=== PATIENT | female | born 1955 | race Caucasian/White ===

== ENCOUNTER 2020-11-08 15:50 | Emergency (ER) | payer MEDICARE, SELFPAY ==
--- NOTE | ~2020-11-08 | XR_ITS ---
EXAMINATION: XR chest 1V portable DATE: 11/08/2020 16:36 INDICATION: Shortness of breath and cough. TECHNIQUE: A single frontal view of the chest was obtained. COMPARISON: Chest 2 views 12/07/2018 FINDINGS: The chest demonstrates clear lungs without pneumonia, pleural effusion, or pneumothorax. Th e heart size is normal. Surgical clips in the right upper quadrant are likely from cholecystectomy. IMPRESSION: 1. No acute cardiopulmonary disease. Reviewed, dictated and finalized at location A. MAKING MACHINE OPERATOR
[2020-11-08 16:01] VITALS: BP 122/63; PULSE 71; RESP 22; TEMP 36.7; O2SAT 98
--- NOTE | 2020-11-08 16:11 | ECG_ITS ---
Measurements Intervals [place] Rate: 67 P: 22 HI: 139 QRS: 25 QRSD: 94 T: 31 QT: 396 QTc: 419 Interpretive Statements SINUS RHYTHM NORMAL ECG Electronically Signed On 11-08-2020 16:36:15 GEOTECHNICAL FIELD TECHNICIAN by Sidney Mcconnell D.O.
--- NOTE | 2020-11-08 16:12 | ED.SOB ---
HPI - SOB/Dyspnea General Chief Complaint: Shortness of Breath/Dyspnea Stated Complaint: I want a COVID test Time Seen by Provider: 11/08/20 16:04 Source: patient Limitations: no limitations History of Present Illness HPI Narrative: Patient is a 65-year-old female wants a Covid test, complaining of cough, shortness of breath, body aches, decreased appetite and fatigue that started last week. Patient states that she was exposed to Covid, sounds positive for Covid. Patient denies any abdominal pain, nausea, vomiting, diarrhea. Related Data Home Medications Medication Instructions Recorded Confirmed alpha lipoic acid 600 mg PO BID 11/08/20 alprazolam 0.5 mg PO BID PRN 11/08/20 aspirin mg PO 11/08/20 bupropion HCl 300 mg PO QAM 11/08/20 calcium carbonate-vitamin D3 1 tablet PO BID 11/08/20 [Calcium 600 with Vitamin D3] coenzyme Q10 [Co Q-10] 200 mg PO DAILY 11/08/20 ergocalciferol (vitamin D2) 1,000 unit PO DAILY 11/08/20 [Vitamin D2] flaxseed oil 1,000 mg PO DAILY 11/08/20 fluoxetine mg 11/08/20 lisinopril 11/08/20 magnesium oxide mg 11/08/20 montelukast mg 11/08/20 simvastatin mg 11/08/20 sitagliptin [Januvia] 50 mg PO DAILY 11/08/20 trazodone 100 mg PO HS 11/08/20 turmeric root extract mg PO 11/08/20 vit C-vit W-yizplq-nrrbqall cap PO 11/08/20 [Lutein Vison Formula] Allergies Allergy/AdvReac Type Severity Reaction Status Date / Time aspirin Allergy Intermediate Hives / Verified 11/08/20 16:11 [place] oxycodone Allergy Intermediate Hives / Verified 11/08/20 16:11 [place] ibuprofen Allergy Unknown Other Verified 11/08/20 16:11 Review of Systems Review of Systems: All systems reviewed & are unremarkable except as noted in HPI and below Constitutional: Constitutional: Denies body ache(s), Denies excessive sweating, Denies fever(s), Denies headache(s), Denies lethargy and Denies weight loss Eyes: Eyes: Denies blurry vision, Denies change in vision and Denies loss of vision ENT: Denies dizziness, Denies ear discharge, Denies headache(s), Denies lip swelling, Denies epistaxis, Denies nasal congestion, Denies neck pain, Denies throat swelling and Denies tongue swelling Cardiovascular: Cardiovascular: Denies chest pain, Denies chest pain at rest, Denies chest pain with activity, Denies diaphoresis, Denies rapid heart rate, Denies edema, Denies irregular heart rhythm, Denies lightheadedness and Denies palpitations Respiratory: Respiratory: Denies chest congestion and Denies hemoptysis Gastrointestinal: Gastrointestinal: Denies abdominal pain, Denies melena, Denies hematochezia, Denies diarrhea, Denies nausea, Denies vomiting and Denies hematemesis Musculoskeletal: Musculoskeletal: Denies abnormal gait, Denies deformity, Denies joint swelling, Denies limited range of motion, Denies neck pain and Denies numbness Neurologic: Denies Abnormal speech present, Denies abnormal gait, Denies confusion, Denies dizziness, Denies headache(s), Denies focal weakness, Denies loss of vision, Denies numbness, Denies Other visual disturbances, Denies Sensory deficit (Neuro) and Denies weakness Psychiatric: Psychiatric: Denies confusion, Denies depression, Denies auditory hallucinations, Denies homicidal ideation and Denies suicidal ideation Endocrine: Endocrine: Denies cold intolerance, Denies excessive sweating, Denies fatigue, Denies heat intolerance and Denies palpitations Hematologic/Lymphatic: Hematologic/Lymphatic: Denies easy bleeding and Denies easy bruising Allergic/Immunologic: Allergic/Immunologic: Denies lip swelling, Denies throat swelling and Denies tongue swelling Exam Const: General: cooperative, healthy appearing, comfortable, no acute distress, well developed, alert and awake; No confusion Orientation/consciousness: oriented to person, oriented to place, oriented to time, patient oriented x3 and No confusion Limitations: no limitations HENMT: Head: normal to inspection, normocephalic a
[2020-11-08 16:20] VITALS: PULSE 65; O2SAT 99
[2020-11-08 16:58] LABS: Basophils Percent Auto 0.2 % (0.2-1.2); Eosinophils Percent Auto 0.9 % (0-4.4); Hematocrit 36.5 % (37.0-47.0); Hemoglobin 12.1 g/dL (12.0-15.0); Immature Granulocyte Absolute 0.02 K/mm3 (0.00-0.031); Immature Granulocyte Percent A 0.5 % (0-0.5); Immature Platelet Fraction Pct 4.5 % (0.9-11.2); Lymphocytes Absolute Auto 1.12 K/mm3 (0.9-3.2); Mean Corpuscular HGB Conc 33.2 g/dl (32-36); Mean Corpuscular Hemoglobin 30.1 pg (26-34); Mean Corpuscular Volume 90.8 fl (80-100); Mean Platelet Volume 11.3 fl (7.4-10.4); Monocytes Absolute Auto 0.6 K/mm3 (0.1-0.6); Monocytes Percent Auto 14.6 % (2.6-8.5); Neutrophils Absolute Auto 2.5 K/mm3 (1.3-6.7); Neutrophils Percent Auto 57.8 % (45.5-73.1); Platelet Count Result 134 k/mm3 (150-375); Red Blood Count 4.02 M/mm3 (4.2-5.4); Red Cell Distribution Width 13.5 % (11.5-14.5); White Blood Count 4.3 K/mm3 (4.5-10.0)
[2020-11-08 17:07] LABS: Alanine Aminotransferase 36 U/L (4-35); Albumin Level 4.2 g/dL (3.5-5.1); Alkaline Phosphatase 61 U/L (38-126); Anion Gap 11 mmol/L (8-16); Aspartate Amino Transferase 32 U/L (14-36); Bilirubin,Total 0.4 mg/dL (0.2-1.3); Blood Urea Nitrogen 30 mg/dL (7-17); Calcium 9.8 mg/dL (8.4-10.2); Carbon Dioxide 26 mmol/L (22-30); Chloride 101 mmol/L (98-107); Estimated CRCL calculation 27 ml/min; Estimated Glomerular Filt Rate 25; Glucose 168 mg/dL (65-105); Potassium 4.7 mmol/L (3.4-5.0); Sodium 138 mmol/L (137-145)
[2020-11-08 17:10] LABS: D Dimer 0.47 ug/mL (<0.48)
[2020-11-08 17:19] LABS: NT Pro B Type Natriuretic Pept 88 PG/ML (5-100); Troponin I < 0.012 ng/mL (0.000-0.034)
[2020-11-08] MEDS: LACTATED RINGERS 1,000 ML 999 ML IV CONT (17:55)
[2020-11-08 17:57] VITALS: BP 104/89; PULSE 69; RESP 18; TEMP 36.6; O2SAT 98
[2020-11-08 19:00] VITALS: BP 112/68; PULSE 72; RESP 18; TEMP 36.7; O2SAT 97
[2020-11-09 19:06] LABS: SARS-CoV-2 RNA PCR Positive
== END 2020-11-08 19:05 | disposition home or self-care (01) ==
PROVIDERS: Emergency Provider Emergency Medicine; PCP Nurse Practitioner Adult Health
DX: U07.1 COVID-19 (principal); Z79.82 Long term (current) use of aspirin; Z79.84 Long term (current) use of oral hypoglycemic drugs
CPT/HCPCS: 36415; 71045; 80053; 83880; 84484; 85025; 85055; 85380; 93005; 96360; 99284; C9803; J7120; U0003

== ENCOUNTER 2022-02-05 09:25 | Emergency (ER) | payer MEDICARE, SELFPAY ==
--- NOTE | ~2022-02-05 | CT_ITS ---
EXAMINATION: CT abdomen pelvis wo con EXAM DATE: 02/05/2022 11:06 INDICATION: Epigastric ABD pain, N/V, CKD TECHNIQUE: Spiral CT of the abdomen and pelvis was performed without contrast. Axial, coronal and s agittal images of the abdomen and pelvis were reviewed. The dose-length product (DLP) for this exami nation was 1123.55 mGy-cm. The exposure was tailored according to patient size (auto mA exposure con trol), and iterative reconstruction (ASIR) was used as additional dose reduction technique. There is no prior study for comparison. FINDINGS: The liver, spleen, adrenal glands and pancreas are unremarkable. There are cholecystectomy clips. There is no nephrolithiasis or hydronephrosis. Mild bilateral renal atrophy. The uterus is n ot identified and has likely been surgically resected. The bladder is unremarkable. There is no ret roperitoneal or pelvic lymphadenopathy. The appendix is not positively visualized. There is no pericecal inflammatory change to suggest appe ndicitis. There is mild sigmoid colonic diverticulosis. There is no adjacent inflammatory change to suggest diverticulitis. The stomach and small bowel are unremarkable. There is expected amount of c olonic stool. No free intraperitoneal gas. The heart is normal in size. There are no pericardial or pleural effusions. The lung bases are unremarkable. There are no osteoblastic or osteolytic les ions identified. IMPRESSION: 1. No acute intra-abdominal findings. 2. Mild sigmoid diverticulosis. 3. Hysterectomy, cholecystectomy. Reviewed, dictated and finalized at location A.
[2022-02-05 09:30] VITALS: BP 159/69; PULSE 78; RESP 20; TEMP 36.9; O2SAT 96
--- NOTE | 2022-02-05 09:30 | ED.ABDPAIN ---
HPI - Abdominal Pain General Chief Complaint: Abdominal Pain <Julissa Jones PA-C - Last Filed: 02/05/22 14:23> Stated Complaint: vomiting, abd pain <MYLES Rubalcava Last Filed: 02/05/22 14:23> Time Seen by Provider: 02/05/22 09:27 <Julissa Jones PA-C - Last Filed: 02/05/22 14:23> Source: patient <Julissa Jones PA-C - Last Filed: 02/05/22 14:23> Mode of arrival: ambulatory <MYLES Rubalcava Last Filed: 02/05/22 14:23> Limitations: no limitations <MYLES Rubalcava Last Filed: 02/05/22 14:23> History of Present Illness HPI narrative: Patient is a 66-year-old female who presents the ED with report of epigastric abdominal pain. Patient reports the pain has been present since Monday. It has been constant, but mild since then. She feels like she has been having increased acid reflux symptoms. She used to take omeprazole daily but had to discontinue this due to her kidney function. She now only takes Pepcid as needed. Patient then developed nausea and vomiting last night. She also reports having constipation with her last bowel movement being last Monday. She states she typically has 1-2 bowel movements a day. Patient denies any fever, chills, rectal bleeding, dysuria, urinary frequency, hematemesis. She does note a Hx of chronic hematuria, which has been evaluated by Urology in the past. Patient has a Hx of CKD (Dr. Escobar) and HTN/HLD/DM. Last had a stress test several years ago. Patient denies any CP, SOB, palpitations, edema. <MYLES Rubalcava Last Filed: 02/05/22 14:23> Related Data Home Medications: Home Medications Medication Instructions Recorded Confirmed alpha lipoic acid 600 mg PO BID 11/08/20 alprazolam 0.5 mg PO BID PRN 11/08/20 aspirin mg PO 11/08/20 bupropion HCl 300 mg PO QAM 11/08/20 calcium carbonate-vitamin D3 1 tablet PO BID 11/08/20 [Calcium 600 with Vitamin D3] coenzyme Q10 [Co Q-10] 200 mg PO DAILY 11/08/20 ergocalciferol (vitamin D2) 1,000 unit PO DAILY 11/08/20 [Vitamin D2] flaxseed oil 1,000 mg PO DAILY 11/08/20 fluoxetine mg 11/08/20 lisinopril 11/08/20 magnesium oxide mg 11/08/20 montelukast mg 11/08/20 simvastatin mg 11/08/20 sitagliptin [Januvia] 50 mg PO DAILY 11/08/20 trazodone 100 mg PO HS 11/08/20 turmeric root extract mg PO 11/08/20 vit C-vit E-pnoipc-[id number] cap PO 11/08/20 [Lutein Vison Formula] <Julissa Jones PA-C - Last Filed: 02/05/22 14:23> Allergies/Adverse Reactions: Allergies Allergy/AdvReac Type Severity Reaction Status Date / Time aspirin Allergy Intermediate Hives / Verified 02/05/22 10:52 [place] oxycodone Allergy Intermediate Hives / Verified 02/05/22 10:52 [place] ibuprofen Allergy Unknown Other Verified 02/05/22 10:52 <Julissa Jones PA-C - Last Filed: 02/05/22 14:23> Review of Systems Review of Systems: CONSTITUTIONAL: Denies fever. CARDIOVASCULAR: Denies chest pain, palpitations, edema. RESPIRATORY: Denies dyspnea. GASTROINTESTINAL: Reports epigastric abdominal pain, nausea, vomiting, constipation. Denies hematemesis, rectal bleeding, diarrhea. GENITOURINARY: Reports chronic hematuria. Denies dysuria, urinary frequency. SKIN: Denies rash or itching. MUSCULOSKELETAL: Denies back pain, joint pain, or myalgia. NEUROLOGIC: Denies headache, numbness, or weakness. <Julissa Jones PA-C - Last Filed: 02/05/22 14:23> All systems reviewed & are unremarkable except as noted in HPI and below <Julissa Jones PA-C - Last Filed: 02/05/22 14:23> PMFSH Past Medical History Medical History: Medical History (Updated 02/05/22 @ 14:22 by Julissa N. Skau, PA-C) Anxiety CKD (chronic kidney disease) Depression Diabetes mellitus GERD (gastroesophageal reflux disease) Hyperlipidemia Hypertension <Julissa Jones PA-C - Last Filed: 02/05/22 14:23> Surgical History Surgical History: Surgical History (Updated 02/05/22 @ 10:00 by Julissa Vargas
--- NOTE | 2022-02-05 09:53 | ECG_ITS ---
Measurements Intervals [place] Rate: 68 P: 24 CT: 143 QRS: -4 QRSD: 89 T: 27 QT: 398 QTc: 424 Interpretive Statements SINUS RHYTHM POSSIBLE ANTERIOR MYOCARDIAL INFARCTION , OF INDETERMINATE AGE [30 ms Q WAVE IN V3/V4, OR R < 0.2 mV IN V4] PROBABLE INFERIOR MYOCARDIAL INFARCTION , PROBABLY OLD [35 ms Q WAVE IN II/aVF] COMPARED TO ECG 11/08/2020 16:33:51 NO SIGNIFICANT CHANGES Electronically Signed On 02-06-2022 6:52:29 CDT by Nola Campbell M.D.
[2022-02-05 09:58] LABS: Basophils Percent Auto 0.3 % (0.2-1.2); Eosinophils Percent Auto 0.3 % (0-4.4); Hematocrit 39.2 % (37.0-47.0); Hemoglobin 13.1 g/dL (12.0-15.0); Immature Granulocyte Absolute 0.01 K/mm3 (0.00-0.031); Immature Granulocyte Percent A 0.2 % (0-0.5); Lymphocytes Percent Auto 32.2 % (18.3-44.2); Mean Corpuscular HGB Conc 33.4 g/dl (32-36); Mean Corpuscular Hemoglobin 30.2 pg (26-34); Mean Corpuscular Volume 90.3 fl (80-100); Mean Platelet Volume 10.7 fl (7.4-10.4); Monocytes Absolute Auto 0.9 K/mm3 (0.1-0.6); Monocytes Percent Auto 13.7 % (2.6-8.5); Neutrophils Absolute Auto 3.3 K/mm3 (1.3-6.7); Neutrophils Percent Auto 53.3 % (45.5-73.1); Platelet Count Result 170 k/mm3 (150-375); Red Blood Count 4.34 M/mm3 (4.2-5.4); Red Cell Distribution Width 12.7 % (11.5-14.5); White Blood Count 6.2 K/mm3 (4.5-10.0)
[2022-02-05 10:04] LABS: Add Urine Microscopic? YES; Appearance Urine Cloudy (Clear); Bacteria Urine Trace /hpf; Bilirubin Urine Negative (Negative); Blood Urine Negative (Negative); Color Urine Yellow (Yellow); Glucose Urine UA Negative (Negative); Ketones Urine Negative (Negative); Leukocyte Esterase Ur Negative LEU/UL (Negative); Mucus Urine Rare /lpf; Nitrate Urine Negative (Negative); Protein Urine Negative (Negative); Squamous Epithelial Cell Urine Moderate /hpf (Few); Urobilinogen Urine Negative mg/dL (<2.0)
[2022-02-05 10:07] LABS: Alanine Aminotransferase 22 U/L (4-35); Albumin Level 4.8 g/dL (3.5-5.1); Alkaline Phosphatase 57 U/L (38-126); Anion Gap 12 mmol/L (8-16); Aspartate Amino Transferase 36 U/L (14-36); Blood Urea Nitrogen 21 mg/dL (7-17); Calcium 10.1 mg/dL (8.4-10.2); Carbon Dioxide 26 mmol/L (22-30); Chloride 96 mmol/L (98-107); Estimated CRCL calculation 28 ml/min; Estimated Glomerular Filt Rate 28; Glucose 166 mg/dL (65-110); Lipase 139 U/L (23-300); Potassium 4.6 mmol/L (3.4-5.0); Sodium 134 mmol/L (137-145)
[2022-02-05] MEDS: ONDANSETRON INJ 4 MG/2 ML VIAL IV PUSH (10:11)
[2022-02-05] MEDS: SODIUM CHLORIDE 0.9% IV 1,000 ML 999 ML IV CONT (10:12)
[2022-02-05 10:42] LABS: Troponin I < 0.012 ng/mL (0.000-0.034)
--- NOTE | 2022-02-05 11:01 | PC.NURSE ---
Pt taken to CT scan
[2022-02-05] MEDS: LIDOCAINE HCL 2% VISC SOLN 15 ML UDC 20 ML PO (11:12)
[2022-02-05] MEDS: MAG HYDROX/AL HYDROX/SIMETH 30 ML UDC PO (11:12)
[2022-02-05 11:16] LABS: D Dimer 0.37 ug/mL (<0.48)
[2022-02-05 12:18] VITALS: BP 162/74; PULSE 72; RESP 18; O2SAT 96
== END 2022-02-05 12:47 | disposition home or self-care (01) ==
PROVIDERS: Physician Assistant; Emergency Provider Emergency Medicine; PCP Nurse Practitioner Adult Health
DX: E11.22 Type 2 diabetes mellitus with diabetic chronic kidney disease (principal); I12.9 Hypertensive chronic kidney disease with stage 1 through stage 4 chronic kidney disease, or unspecified chronic kidney disease; N18.9 Chronic kidney disease, unspecified; E78.5 Hyperlipidemia, unspecified; K21.9 Gastro-esophageal reflux disease without esophagitis; F41.9 Anxiety disorder, unspecified; F32.A Depression, unspecified; Z79.84 Long term (current) use of oral hypoglycemic drugs
CPT/HCPCS: 36415; 74176; 80053; 81001; 83690; 84484; 85025; 85380; 93005; 96365; 96375; 99284; A9270; J0131; J2405; J7030

== ENCOUNTER → 2023-06-26 12:56 | Outpatient (CLI) | payer MEDICARE, SELFPAY ==
--- NOTE | ~2023-06-26 | US_ITS ---
Renal-Bladder ultrasound Clinical History: Chronic kidney disease Technique: Real-time sonographic imaging of the kidneys and urinary bladder was performed. Findings: The right kidney measures 9.6 cm in length and the left kidney measures 8.6 cm. There is no hydronephrosis or renal calculus identified. Renal cortical echogenicity is increased. No suspicious renal mass lesion is identified. The urinary bladder is moderately distended at the time of this exam. No intraluminal echoes are iden tified. No abnormal wall thickening is seen. Impression: Increased renal echogenicity is consistent with chronic medical renal disease. No hydronephrosis. Reviewed, dictated and finalized at location . Impression: Increased renal echogenicity is consistent with chronic medical renal disease. No hydronephrosis.
== END ==
PROVIDERS: PCP Nurse Practitioner Family; Visit Provider Internal Medicine Nephrology
DX: E11.22 Type 2 diabetes mellitus with diabetic chronic kidney disease (principal); I12.9 Hypertensive chronic kidney disease with stage 1 through stage 4 chronic kidney disease, or unspecified chronic kidney disease; N18.4 Chronic kidney disease, stage 4 (severe); G47.33 Obstructive sleep apnea (adult) (pediatric); E78.00 Pure hypercholesterolemia, unspecified
CPT/HCPCS: 76775